=== PATIENT | female | born 1950 | race Caucasian/White ===

== ENCOUNTER 2016-11-13 09:56 | Emergency (ER) | payer OTHER ==
[~2016-11-13] VITALS: Ht 149.9 cm; Wt 67.1 kg
[~2016-11-13 09:56] MED LIST: GLIPIZIDE5 MG PO; GLUCOTROL5 MG PO; LAC PO; LANTUS SOLOS100 U/M1 SQ; MACROBID100 MG PO; MERREM IV1 GM INJ; METFORMIN HCL1000 MG PO; TAM75 PO; VIRTUSSIN A/C118 ML PO; ZOF4 PO
[2016-11-13 11:57] LABS: BASOPHIL % 0.5 % (0-2); PLATELET COUNT 147 x10^3mcL (130-400); RED CELL DISTRIBUTION WIDTH 13.7 % (11.5-14.5)
[2016-11-13 12:10] LABS: CALCIUM 8.6 mg/dL (8.5-10.1); CARBON DIOXIDE 25.9 mmol/L (21-32); CREATININE SERUM 1.2 mg/dL (0.6-1.0); POTASSIUM SERUM 4.7 mmol/L (3.5-5.1)
[2016-11-13 14:59] VITALS: BP 167/85
== END 2016-11-13 14:59 | disposition home or self-care (01) ==
LOC: ED 09:56
PROVIDERS: Emergency Medicine Emergency Medical Services
DX: R42 Dizziness and giddiness (principal); E11.9 Type 2 diabetes mellitus without complications; Z79.84 Long term (current) use of oral hypoglycemic drugs
CPT/HCPCS: 36415